=== PATIENT | male | born 1980 | race Caucasian/White ===

== ENCOUNTER 2017-03-08 14:52 | Emergency (ER) | payer OTHER ==
--- NOTE | 2017-03-08 16:09 | EDM.PDOC ---
ED HPI GENERAL MEDICAL PROBLEM - General Chief Complaint: Back Pain or Injury Stated Complaint: FELL DOWN STAIRS BACK INJURY Time Seen by Provider: 03/08/17 15:41 Source of Information: Reports: Patient History Limitations: Reports: No Limitations - History of Present Illness INITIAL COMMENTS - FREE TEXT/NARRATIVE: 36 year old male presents for evaluation and treatment of right low back pain. Patient reports on Thursday he feel down approximately 3 stairs. He reports the stairs were old railroad ties. He states this was outside when he slipped landing on his back. He has been taking significant pain to the right lower back since. He did not have any syncope. No headaches, nausea, vomiting, chest pain, shortness of breath, abdominal pain, lightheadedness, dizziness or hematuria. Patient has been taking Tylenol and Motrin but continues to have significant pain. Lower Back Pain Score (Numeric/FACES): 10 - Related Data Allergies Allergy/AdvReac Type Severity Reaction Status Date / Time Penicillins Allergy Rash Verified 03/08/17 15:20 Home Meds: Home Meds Orphenadrine [Norflex] 100 mg PO BID PRN #20 tab.er 03/08/17 [Rx] Past Medical History - Past Health History Medical/Surgical History: Denies Medical/Surgical History Social & Family History - Tobacco Use Smoking Status *Q: Unknown Ever Smoked ED ROS GENERAL - Review of Systems Review Of Systems: See Below Respiratory: Denies: Shortness of Breath Cardiovascular: Denies: Chest Pain GI/Abdominal: Denies: Nausea, Vomiting : Denies: Hematuria Musculoskeletal: Reports: Back Pain (right low back). Denies: Neck Pain Neurological: Denies: Headache, Syncope ED EXAM,LOWER BACK PAIN/INJURY - Physical Exam Exam: See Below Exam Limited By: No Limitations General Appearance: Alert, WD/WN, No Apparent Distress Ears: Normal External Exam Nose: Normal Inspection Throat/Mouth: Normal Inspection, Normal Voice, No Airway Compromise Neck: Normal Inspection, Non-Tender, Full Range of Motion Respiratory/Chest: No Respiratory Distress, Lungs Clear, Normal Breath Sounds Cardiovascular: Normal Peripheral Pulses, Regular Rate, Rhythm, No Murmur GI/Abdominal: No Distention Back Exam: Normal Inspection, Paraspinal Tenderness (right low back L3-L5). No : Vertebral Tenderness Neurological: Alert, Normal Mood/Affect, Normal Gait Psychiatric: Normal Affect, Normal Mood Skin Exam: Warm, Dry, Normal Color Course - Vital Signs Last Recorded V/S: Last Vital Signs Temp 36.9 C 03/08/17 15:17 Pulse 98 03/08/17 15:17 Resp 18 03/08/17 15:17 BP 145/89 H 03/08/17 15:17 Pulse Ox 100 03/08/17 15:17 - Orders/Labs/Meds Orders: Active Orders 24 hr Category Date Time Status Lumbar Spine 2 or 3V [CR] Stat Exams 03/08/17 16:00 Ordered - Radiology Interpretation Free Text/Narrative:: lumbar spine xray shows no acute fractures or dislocations - Re-Assessments/Exams Free Text/Narrative Re-Assessment/Exam: 03/08/17 16:45 I reviewed the xray results with the patient. Will try muscle relaxers, tylenol, motrin, heat and ice for pain relief. Discharge instructions as documented. Departure - Departure Time of Disposition: 16:59 Disposition: Home, Self-Care 01 Condition: Fair Clinical Impression: Back pain - Discharge Information Prescriptions: Orphenadrine [Norflex] 100 mg PO BID PRN #20 tab.er PRN Reason: Spasms Instructions: Back Pain, Adult, [id number] Referrals: Ashlee Frances MD [Primary Care Provider] - Forms: ED Department Discharge Additional Instructions: Take Tylenol or Motrin as needed for pain relief. Norflex 1 tab twice a if her muscle spasm. recommend using ice or heat to the sore area. Expect to be sore for the next 1-2 weeks. The first 3 days with the worst. If you continue to have soreness beyond 10 days follow-up with your family medicine provider. Please return to the ER if your Symptoms change or worsen. - My Orders Last 24 Hours: My Active Orders 03/08/17 16:00 Lumbar Spine 2 or 3V [CR] Stat - Assessment/Plan Last 24 Hours: My Active Orders 03/08/17 16:00 Lumbar Spine 2 or 3V [CR] Stat
--- NOTE | 2017-03-10 08:02 | CR ---
Lumbar spine: AP and lateral views of the lumbar spine were obtained. Comparison: No previous study. Mild scoliosis is seen. Vertebral body heights and disc spaces are maintained. Minimal endplate osteophytes are noted within L4 and L5. Pedicles as well as transverse and spinous processes are intact. No subluxation is seen. Mild deformity is noted of the transverse process on the right side at L1 compatible with fracture. No other acute abnormality is appreciated. Impression: 1. Fracture within the transverse process of L1 on the right side. 2. Mild scoliosis. 3. Other incidental findings. Diagnostic code #3
== END 2017-03-08 17:10 | disposition home or self-care (01) ==
LOC: JD.ED 14:52
DX: M54.5 Low back pain (principal); Z88.0 Allergy status to penicillin
CPT/HCPCS: 72100; 72100-26; 99283

== ENCOUNTER 2023-04-05 11:57 | Emergency (ER) | payer BC | END 2023-04-05 13:00 | disposition home or self-care (01) | LOC: JD.ED 11:57 | DX: N45.1 Epididymitis (principal); Z88.0 Allergy status to penicillin | CPT/HCPCS: 99283 ==